=== PATIENT | male | born 1965 | race Caucasian/White ===

== ENCOUNTER 2016-12-05 13:03 | Emergency (ER) | payer OTHER ==
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
[2016-12-05] MEDS ORDERED: LIDOCAINE 2% JELLY 20 ML (UROJECT) ONE (13:42)
[2016-12-05 14:59] VITALS: BP 128/76; PULSE 80; RESP 14; TEMP 98.4; O2SAT 94
== END 2016-12-05 15:13 | disposition home or self-care (01) ==
PROC: 0HQ1XZZ Repair Face Skin, External Approach (ICD-10-PCS; principal; 2016-12-05)
DX: S01.81XA Laceration without foreign body of other part of head, initial encounter (principal); S62.643A Nondisplaced fracture of proximal phalanx of left middle finger, initial encounter for closed fracture; S62.645A Nondisplaced fracture of proximal phalanx of left ring finger, initial encounter for closed fracture; S06.0X0A Concussion without loss of consciousness, initial encounter; V17.0XXA Pedal cycle driver injured in collision with fixed or stationary object in nontraffic accident, initial encounter; Y92.89 Other specified places as the place of occurrence of the external cause; Y93.55 Activity, bike riding
CPT/HCPCS: L3925

== ENCOUNTER 2018-02-09 08:25 | Inpatient (IN) | payer OTHER ==
[2018-02-09] MEDS ORDERED: HYDROmorphONE/DILAUDID 1 MG/ML INJ ONE ×2 (08:48→09:42)
[2018-02-09] MEDS ORDERED: HYDROmorphONE/DILAUDID 2 MG/ML INJ IVP ONE ×2 (08:48→09:36)
[2018-02-09] MEDS ORDERED: ONDANSETRON 4 MG/2 ML VIAL IVP ONE (08:48)
[2018-02-09] MEDS ORDERED: NS 1,000 ML IV ONE (08:48)
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
[2018-02-09 09:02] LABS: PLATELET COUNT 227 10^3/uL (150-400)
[2018-02-09 09:27] LABS: INR 1.05 (0.83-1.16); PROTIME(PATIENT) 13.9 SEC (12.0-15.0)
[2018-02-09] MEDS ORDERED: LR 1,000 ML IV ONE (11:30)
[2018-02-09] MEDS ORDERED: LIDOCAINE 1% 2 ML INJ ID PRN (11:30)
[2018-02-09] MEDS ORDERED: HYDROmorphONE/DILAUDID 1 MG/ML INJ IVP PRN ×2 (11:56→17:23)
[2018-02-09] MEDS ORDERED: fentaNYL 100 MCG/2 ML INJ IV PRN (11:59)
[2018-02-09] MEDS ORDERED: HYDROmorphONE/DILAUDID 2 MG/ML INJ ONE ×2 (12:09→17:36)
[2018-02-09] MEDS ORDERED: HYDROmorphONE/DILAUDID 2 MG/ML INJ IVP PRN (12:18)
[2018-02-09] MEDS ORDERED: ceFAZolin 2 GM/SWFI 2 GM/20 ML SYR IVP ONE ×2 (12:58→13:30)
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
[2018-02-09] MEDS ORDERED: BACITRACIN 50,000 UNITS/10 ML SYR IRR ONE (14:23)
[2018-02-09] MEDS ORDERED: POLYMYXIN B SULFATE 500,000 UNIT/10 ML SYR IRR ONE (14:23)
[2018-02-09] MEDS ORDERED: BUPIVACAINE 0.25% 30 ML SDV ONE (14:24)
[2018-02-09] MEDS ORDERED: EPINEPHrine 1 MG/ML INJ ONE (14:24)
[2018-02-09] MEDS ORDERED: LIDOCAINE 2% 5 ML SDV ONE (14:54)
[2018-02-09] MEDS ORDERED: fentaNYL 100 MCG/2 ML INJ ONE ×3 (14:54→17:13)
[2018-02-09] MEDS ORDERED: PROPOFOL/EMULSION 500 MG/50 ML BOTTLE IV ONE (14:54)
[2018-02-09] MEDS ORDERED: PROPOFOL 200 MG/20 ML VIAL ONE (14:54)
[2018-02-09] MEDS ORDERED: DEXAMETHASONE 4 MG/ML VIAL ONE (15:14)
[2018-02-09] MEDS ORDERED: ONDANSETRON 4 MG/2 ML VIAL ONE (15:14)
[2018-02-09] MEDS ORDERED: ATROPINE SULFATE 1 MG/ML VIAL ONE (15:25)
--- NOTE | 2018-02-09 15:36 | PDANEPAE ---
ANE History of Present Illness Patient presents with right interttrochanteric hip fracture for right TFN ANE Past Medical History - Cardiovascular History Hx Hypertension: No Hx Arrhythmias: No Hx Chest Pain: No Hx Coronary Artery / Peripheral Vascular Disease: No Hx CHF / Valvular Disease: No Hx Palpitations: No - Pulmonary History Hx Oxygen in Use at Home: No Hx Sleep Apnea: Yes - Neurologic History Hx Cerebrovascular Accident: No Hx Seizures: No Hx Dementia: No - Endocrine History Hx Diabetes: No - Renal History Hx Renal Disorders: No - Liver History Hx Hepatic Disorders: No - Neurological & Psychiatric Hx Hx Neurological and Psychiatric Disorders: No - Cancer History Hx Cancer: No - Congenital Disorder History Hx Congenital Disorders: No - GI History Hx Gastrointestinal Disorders: No - Surgical History Prior Surgeries: L 4/5 fusion ANE Review of Systems Review of Systems: - Exercise capacity Exercise capacity: >=4 METS METS (RN): 6 METS ANE Patient History - Allergies Allergies/Adverse Reactions: No Known Allergies Allergy (Unverified 02/09/18 08:29) - Home Medications Home medications: home medication list seen and reviewed Home Medications: NK [No Known Home Meds] 12/05/16 [Last Taken Unknown] - NPO status NPO Status: no food or drink >8 hours NPO Since - Liquids (Date): 02/02/18 NPO Since - Liquids (Time): 06:30 NPO Since - Solids (Date): 02/02/18 NPO Since - Solids (Time): 06:30 - Anes Hx Anes Hx: no prior problems - Smoking Hx Smoking Status: Never smoked ANE Labs/Vital Signs - Labs Result Diagrams: 02/09/18 08:20 02/09/18 08:20 - Vital Signs Blood Pressure: 116/77 Heart Rate: 55 Respiratory Rate: 16 O2 Sat (%): 97 Height: 182.88 cm Weight: 74.843 kg ANE Physical Exam - Airway Neck exam: FROM Mallampati Score: Class 2 Mouth exam: normal dental/mouth exam - Pulmonary Pulmonary: no respiratory distress - Cardiovascular Cardiovascular: regular rate and rhythym - ASA Status ASA Status: II, E ANE Anesthesia Plan Anesthesia Plan: GA w LMA (RBA discussed)
[2018-02-09] MEDS ORDERED: PHENYLEPHRINE HCL 100 MCG/ML SYR ONE (16:13)
--- NOTE | 2018-02-09 17:08 | POSTOPPROG ---
Post Op Note Date of Operation: 02/09/18 Surgeon: Keshawn Andrew Sole Skiver: SURY Arceo; MEY Souza Anesthesia: LMA Pre-op Diagnosis: R IT hip Fx Post-op Diagnosis: Same Procedure: TFN R Femur (long) Findings: Synthes TFN [id number] Staticly Locked Prox and Distal Inf/Abcess present in the surg proc area at time of surgery?: No EBL: 50-100 Complications: None
--- NOTE | 2018-02-09 17:11 | POSTANESTH ---
Post Anesthetic Evaluation Cardiovascular Status: Similar to Pre-Op Cond Respiratory Status: Similar to Pre-op Cond. Level of Consciousness/Mental Status: Can Participate in Eval Pain Control: Inadeq, Add Tx Required Nausea/Vomiting Control: Adequate, Prn Tx Ordered Complications Possibly Related to Anesthesia: None Noted
[2018-02-09] MEDS ORDERED: ONDANSETRON 4 MG/2 ML VIAL IVP PRN ×2 (17:14→17:27)
[2018-02-09] MEDS: fentaNYL 100 MCG/2 ML INJ IVP PRN ×2 (17:16→17:25)
[2018-02-09] MEDS ORDERED: HYDROCODONE/APAP 5/325 TAB PO PRN (17:27)
[2018-02-09] MEDS ORDERED: NALOXONE HCL 0.4 MG/ML INJ IVP PRN (17:27)
[2018-02-09] MEDS ORDERED: LR 500 ML IV PRN (17:27)
[2018-02-09] MEDS: HYDROmorphONE/DILAUDID 2 MG/ML INJ IVP PRN ×3 (17:32→18:10)
--- NOTE | 2018-02-09 17:51 | PDMN ---
Medical Necessity Medical necessity: Patient meets inpatient criteria per PA note and [facility] Musculoskeletal Disease or Procedure GRG (TFN R femur for intertrochanteric/ proximal femur fracture)
[2018-02-09] MEDS: ACETAMINOPHEN 325 MG TAB PO PRN (19:47)
[2018-02-09] MEDS: oxyCODONE IR 5 MG TAB PO PRN ×2 (19:48→23:58)
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
[2018-02-10] MEDS: oxyCODONE IR 5 MG TAB PO PRN ×3 (05:02→19:45)
[2018-02-10] MEDS: ASPIRIN 325 MG TAB PO SCH (07:48)
[2018-02-10] MEDS: ACETAMINOPHEN 325 MG TAB PO PRN ×2 (07:48→15:21)
[2018-02-10] MEDS: CYCLOBENZAPRINE 10 MG TAB PO PRN ×2 (07:49→16:56)
--- NOTE | 2018-02-10 11:51 | ASMTCMCOM ---
CM Note CM Note Notes: Chart reviewed. 52 year old male s/p femur fracture with surgical repair, Per OT, Pain not controlled enough to participate in therapy. May benefit form [facility]HC. PT pending. CM to follow. PLAN: TBD Date Signed: 02/10/2018 11:50 AM Electronically Signed By:Seble Cornelius RN
[2018-02-11] MEDS: oxyCODONE IR 5 MG TAB PO PRN ×6 (01:07→21:24)
[2018-02-11] MEDS: CYCLOBENZAPRINE 10 MG TAB PO PRN ×3 (01:07→17:17)
[2018-02-11] MEDS: ASPIRIN 325 MG TAB PO SCH (09:04)
[2018-02-11] MEDS: ACETAMINOPHEN 325 MG TAB PO PRN ×2 (10:05→21:25)
--- NOTE | 2018-02-11 10:12 | SOAPPROG ---
SOAP Progress Note Assessment/Plan: Assessment: POD #2 Right hip TFN: doing well; pain well controlled. Jc still in place and is aware he will be going home with jc to be examined by urology on Thursday for urinary retention. Plan: WBAT. Dressing: maintain dry dressing. On POD #3 can begin daily dry dressing changes. DVT prophylaxis: ASA 325mg daily for total of 3 weeks post-op, SHANNAN singh, NAMANs, IS. Urinary retention: maintain cath, F/U with urology per their reccs. F/U with our office at 2 weeks post-op. Please schedule appt with our office at [phone]. OK to D/C once stable and cleared by CM, PT/OT, urology. Advised him to watch for fever, chills, abnormal numbness, tingling, cough, congestion, chest pain, SOB, dyspnea, change in heat/color of extremity or around wound site, abnormal bleeding/oozing/discharge, claudication and to seek immediate medical attn if seen. Patient discussed with Dr. Andrew. 02/11/18 10:22 Subjective: Sitting up in bed; in room. Has passed flatus. Denies fever, chills, abnormal numbness, tingling, cough, congestion, chest pain, SOB, dyspnea, change in heat/color of extremity or around wound site, abnormal bleeding/oozing /discharge, claudication. Has been attempting to ambulate with PT. Objective: Vital Signs Temp Pulse Resp BP Pulse Ox 37.2 C 88 16 111/63 95 02/11/18 07:24 02/11/18 07:24 02/11/18 07:24 02/11/18 07:24 02/11/18 07:24 Laboratory Results 02/10/18 07:10 02/10/18 07:10 02/10/18 02/11/18 02/12/18 05:59 05:59 05:59 Intake Total 3260 500 Output Total 0 2600 Balance 1210 -2100 PT 13.9 SEC (12.0-15.0) 02/09/18 08:20 INR 1.05 (0.83-1.16) 02/09/18 08:20 A/O. NAD. Non-labored breathing. No diaphoresis. RRR. Abdomen soft, non- distended. MS; Right hip bandaged x3 with no abnormal bleeding/oozing/discharge, change in heat/color around wound sites or of extremity. Mildly TTP over incision sites. Limited AROM of right hip secondary to pain but FROM distally with 5/5 strength distally and no focal deficits. Gross sensation intact & NVI b/l in lower extremities with no focal deficits. Calves soft/supple and NTTP b/l with negative b/l Homans. SHANNAN hose in place b/l with SCDs in place, on and pumping. X-rays: 2 views of right hip show well aligned femur fracture with TFN in place. Hardware and fracture in good position and alignment. No other fractures , malalignments or deformities noted. - Pending Discharge Pending Discharge Within 24 Hours: Yes Pending Discharge Date: 02/12/18 (Pending CM, PT/OT, urology clearance.) Pending Discharge Time: 11:00 ICD10 Worksheet Patient Problems: Problems Problem Status Onset Femur fracture, right Acute
--- NOTE | 2018-02-11 12:51 | GCON ---
[f rep st] CONSULTATION DATE OF CONSULTATION: 02/11/2018 REASON FOR CONSULTATION: Urinary retention. HISTORY OF PRESENT ILLNESS: This is a pleasant patient who is being assessed for urinary retention, status post right hip TFN. He does report that he needed a catheter 16 years ago following a lumbar fusion, for which he was hospitalized for 4 days, did not go home with the catheter. Otherwise, fela es any significant issues with his urination. No nocturia. Normal daytime urination, without incont inence or urgency. Did reports that 16 years ago he was told his bladder was holding 1.6 L before he was catheterized and had pain at that time that he still recalls. PAST MEDICAL/SURGICAL HISTORY: Lumbar fusion, L4-L5, in 2001. SOCIAL HISTORY: . Nonsmoker. Drinks 1 beer per day. No drug use. FAMILY HISTORY: Noncontributory. REVIEW OF SYSTEMS: Ten-point review of systems negative, except as mentioned in HPI. MEDICATIONS: No medications. ALLERGIES: No allergies. PHYSICAL EXAM: VITAL SIGNS: Blood pressure 111/63. Pulse is 88, respirations 16, O2 95 on room air , temperature 37.2. GENERAL: This is a well-developed, well-nourished male, in no acute distress. HEENT: Normocephalic, atraumatic. Extraocular movements intact. NECK: Supple. No lymphadenopathy . Trachea midline. No accessory respiratory muscle use. CARDIAC: Regular rate and rhythm. No low er extremity edema. No obvious JVD. GI: Abdomen soft, nondistended, nontender to palpation. No he patosplenomegaly. : No CVA tenderness. Bladder nondistended. Catheter in bag draining dark urin e in the bag. INTEGUMENT: No obvious rashes or lesions. MUSCULOSKELETAL: Patient was examined whil e supine, moving upper extremities without difficulty. Status post right femur fracture. NEUROLOGIC : Alert and oriented. Affect appropriate to situation. LABS: White blood cell count on 02/09/2018, 4.69, hemoglobin 15.5, hematocrit 46.2, platelets 227. Chemistry on 02/10/2018: Sodium 137, potassium 4.7, chloride 104, carbon dioxide 29, anion gap 4, BU N 14, creatinine 0.8, glucose 114, calcium 8.2. ASSESSMENT/PLAN: Urinary retention. Recommend that patient have a Khan catheter placed and left in place until he can arrange a voiding trial with us early next week. Pending results of his voiding trial, may recommend further assessment for large capacity bladder in this otherwise healthy male. /[id number]/MODL
--- NOTE | 2018-02-11 16:18 | SOAPPROG ---
ELIZABETH Progress Note Assessment/Plan: Assessment: Late entry: pt was seen on 02/10/18 s/p Right hip intertrochanteric fracture TFN Plan: Right lower extremity weight bearing as tolerated with the use of a walker/ crutches Pain medicine as needed Muscle relaxer as needed Ice to right hip PT/OT SHANNAN singh/SCD's DVT prophylaxis: Aspirin 325mg every day Urology consulted: place & Keep Catheter in place over the weekend and f/u with [facility] the beginning of next week on 02/15 or 02/16 Ortho stable Subjective: This is a late entry note from 02/10: patient was seen on Thursday02/10/18 by myself. Patient is POD#1 from right hip IT fx fixed with TFN. He states he is having pain in his right hip and muscle spasms. He was unable to participate with PT this morning due to the pain. He was given a muscle relaxer which is helping with his muscle spasms in his right thigh. Pt also had 4 straight caths since his operation. He states that after his lumbar surgery years ago he also had difficulty urinating. Objective: Vital Signs Temp Pulse Resp BP Pulse Ox 37.0 C 68 16 102/57 L 96 02/11/18 15:26 02/11/18 15:26 02/11/18 15:26 02/11/18 15:26 02/11/18 15:26 Laboratory Results 02/10/18 07:10 02/10/18 07:10 02/10/18 02/11/18 02/12/18 05:59 05:59 05:59 Intake Total 3260 500 Output Total 2050 2600 Balance 1210 -2100 PT 13.9 SEC (12.0-15.0) 02/09/18 08:20 INR 1.05 (0.83-1.16) 02/09/18 08:20 Physical exam: right hip incisions healing well, louie intact. No erythema, no active drainage. Normal sensation to light touch in the RLE. Distal pulse present in the RLE. ICD10 Worksheet Patient Problems: Problems Problem Status Onset Femur fracture, right Acute
[2018-02-12] MEDS: CYCLOBENZAPRINE 10 MG TAB PO PRN (01:04)
[2018-02-12] MEDS: ACETAMINOPHEN 325 MG TAB PO PRN ×2 (05:13→09:37)
[2018-02-12] MEDS: oxyCODONE IR 5 MG TAB PO PRN ×2 (05:13→09:36)
--- NOTE | 2018-02-12 07:04 | SOAPPROG ---
ELIZABETH Progress Note Assessment/Plan: Assessment: s/p Right hip intertrochanteric fracture TFN Plan: Right lower extremity weight bearing as tolerated with the use of a walker/ crutches Pain medicine as needed Muscle relaxer as needed Ice to right hip PT/OT SHANNAN singh/SCD's DVT prophylaxis: Aspirin 325mg every day Keep Catheter in place over the weekend and f/u with [facility] the beginning of next week on 02/15 or 02/16 Ortho stable/DC planning Subjective: Patient is POD#3 from right hip IT fx fixed with TFN. He has a catheter in place. He states his right hip is painful but pain is controlled with medicine. Objective: Vital Signs Temp Pulse Resp BP Pulse Ox 37.1 C 69 18 102/46 L 95 02/11/18 23:25 02/11/18 23:25 02/11/18 23:25 02/11/18 23:25 02/11/18 23:25 Laboratory Results 02/10/18 07:10 02/10/18 07:10 02/11/18 02/12/18 02/13/18 05:59 05:59 05:59 Intake Total 500 750 Output Total 2600 4650 Balance -2100 -3900 PT 13.9 SEC (12.0-15.0) 02/09/18 08:20 INR 1.05 (0.83-1.16) 02/09/18 08:20 Physical exam of the right hip: dressings clean, dry and intact. Normal sensation to light touch in the RLE. Pt able to move all 5 toes. Distal pulse present in the RLE. ICD10 Worksheet Patient Problems: Problems Problem Status Onset Femur fracture, right Acute
[2018-02-12 07:37] VITALS: BP 120/69
[2018-02-12] MEDS: ASPIRIN 325 MG TAB PO SCH (09:36)
[2018-02-12] MEDS ORDERED: MAGNESIUM HYDROXIDE 30 ML UDCUP PO PRN (11:10)
[2018-02-12] MEDS ORDERED: POLYETHYLENE GLYCOL 3350 17 GM PKT PO PRN (11:10)
[2018-02-12] MEDS ORDERED: LACTULOSE 20 GM/30 ML UDCUP PO PRN (11:10)
[2018-02-12] MEDS ORDERED: BISACODYL 10 MG SUPP PR PRN (11:10)
--- NOTE | 2018-02-12 12:31 | PDIAF ---
- Diagnosis Diagnosis: right hip IT fx fixed with TFN Code Status: Full Code - Medication Management Discharge Medications: Medications to Continue on Transfer Acetaminophen [Tylenol 325mg (*)] 650 mg PO Q6HRS PRN tab 02/12/18 [Last Taken Unknown] Aspirin [Aspirin 325 mg (*)] 325 mg PO DAILY tab 02/12/18 [Last Taken Unknown] Cyclobenzaprine [Flexeril 10 MG (*)] 10 mg PO TID PRN #30 tab 02/12/18 [Last Taken Unknown] oxyCODONE IR [Oxycodone Ir (*)] 5 mg PO Q4HRS PRN #40 tab 02/12/18 [Last Taken Unknown] Discharge Medications: Refer to the Discharge Home Medication list for PRN reason. - Orders Services needed: Home Care, Physical Therapy (Please have home physical therapy for the patient) Home Care Face to Face: I certify that this patient was under my care and that I had the required [id number] encounter meeting the encounter requirements on the discharge day. My findings support the fact that the patient is homebound as defined in Home Care Face to Face Continued: CMS Chapter 7 Medicare Benefits Manual 30.1.1 , The condition of the patient is such that there exists a normal inability to leave home and consequently, leaving home would require a considerable and taxing effort. Diet Recommendation: no restrictions on diet Diet Texture: Regular Texture Diet Additional Instructions: Orthopedics: Right lower extremity weight bearing as tolerated with the use of a walker/ crutches Pain medicine as needed Ice to right hip 20 minutes 3-4 times a day SHANNAN hose wear for two weeks post op DVT prophylaxis: Aspirin 325mg every day for 3 weeks post op Keep Catheter in place over the weekend and f/u with [facility] the beginning of next week on 02/15 or 02/[address] Andrew in 2 weeks post op Please call our office with any questions or concerns - Follow Up Care Current Providers and Referrals: Nasima Austin PAC [Physician Hemodialysis Patient Care Specialist] - 02/15/18 (Follow up with [facility]: They recommend having the patient keep the catheter in place over the weekend and be seen by [facility] early next week 02/15 or 02/16) Patient,NotPresent [Unknown] - As per Instructions Keshawn Andrew MD [Medical Doctor] - follow up in 2 weeks (Follow up in the office in 2 weeks post op. Please call with any questions or concerns.)
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
--- NOTE | 2018-02-12 13:55 | ASMTCMCOM ---
CM Note CM Note Notes: Pt medically stable for d/c with [facility] PT and family support. Orders to be obtained via [place]. Date Signed: 02/12/2018 01:54 PM Electronically Signed By:ASHLEY Foss
--- NOTE | 2018-02-12 14:14 | ASDISCHSUM ---
Discharge Information Plan Status:Home with Home Health Medically Cleared to Leave: Discharge Date:02/12/2018 02:05 PM D/C Disposition:Home Health Service ADT D/C Disposition:Home, Routine, Self-Care Projected Discharge Date:02/12/2018 11:00 AM Transportation at D/C: Discharge Delay Reason: Follow-Up Date:02/12/2018 11:00 AM Discharge Slot: Final Diagnosis: Placement Information Referral Type:*Home Health Care Services Referral ID:[id number] Provider Name[facility] Address 1:[address] [facility] [address] Address 2: City:[place] Selection Factors: State:[place] Patient Contact Information Contact Name:BRENDON Relationship: Address:[address] Work Phone: City:[place] Alternate Phone: State/Zip Code:[place] [address] Email: Financial Information Financial Class:HMO and PPO Plans Primary Plan Desc:[facility] CU PLAN Primary Plan Number:[id number] Secondary Plan Desc: Secondary Plan Number: Assessment Information [facility] CM Progress Note CM Note CM Note Notes: Chart reviewed. 52 year old male s/p femur fracture with surgical repair, Per OT, Pain not controlled enough to participate in therapy. May benefit form C. PT pending. CM to follow. PLAN: TBD Date Signed: 02/10/2018 11:50 AM Electronically Signed By:Seble Cornelius RN [facility] CM Progress Note CM Note CM Note Notes: Pt medically stable for d/c with [facility] PT and family support. Orders to be obtained via [employer] Date Signed: 02/12/2018 01:54 PM Electronically Signed By:ASHLEY Foss Intervention Information
[2018-02-12] MEDS ORDERED: SENNOSIDES/DOCUSATE SODIUM TAB PO SCH (21:00)
== END 2018-02-12 14:05 | disposition home or self-care (01) | DRG 482 ==
LOC: EDUNIT# → F3N 17:22
PROVIDERS: ADMIT Orthopaedic Surgery Hand Surgery; ATTEND Orthopaedic Surgery Hand Surgery
PROC: 0QS604Z Reposition Right Upper Femur with Internal Fixation Device, Open Approach (ICD-10-PCS; principal; 2018-02-09 14:45)
DX: S72.141A Displaced intertrochanteric fracture of right femur, initial encounter for closed fracture (principal); S72.351A Displaced comminuted fracture of shaft of right femur, initial encounter for closed fracture; V18.0XXA Pedal cycle driver injured in noncollision transport accident in nontraffic accident, initial encounter; R33.9 Retention of urine, unspecified
CPT/HCPCS: 96374; 97116-GP; 97161-GP; 97166-GO; 97530-GP; 97535-GO; C1713; J0171; J0461; J0690; J1100; J1170; J2370; J2405; J2704; J3010